=== PATIENT | female | born 1995 | race Caucasian/White ===

== ENCOUNTER 2019-03-25 11:51 | Inpatient (IN) | payer MEDICAID, SELFPAY ==
[2019-03-25 12:20] VITALS: BP 113/64; PULSE 51; RESP 18; TEMP 36.4; O2SAT 100
[2019-03-25 12:43] VITALS: BMI 16.8
[2019-03-25 12:50] VITALS: BMI 16.8
--- NOTE | 2019-03-25 13:01 | HP.PCM_ITS ---
Problem List (1) Opioid withdrawal Status: Acute (2) Tobacco dependence Status: Chronic History of Present Illness Date of Admission: 03/25/19 Chief Complaint: Opioid withdrawal. The patient is a 24 year old F requesting medical stabilization for opioid withdrawal. Patient uses IV heroin approximately 2 g daily, last used 8:30 PM last evening. Patient has been in detox twice before. Reports occasional marijuana use. Denies alcohol or other drug use. Reports she relapsed approximately 1 month ago and was prior drug free for 2 years. Currently complains of restlessness, abdominal cramping, chills, diaphoresis, nasal congestion. Current half pack per day smoker. Her other past medical history includes hepatitis C. 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 Paternal History Items: Diabetes Review of Systems Constitutional: Reports: Chills, Malaise HEENT: Denies: Head Aches, Sinus Congestion, Sinus Drainage Cardiovascular: Denies: Chest Pain, Palpitations Respiratory: Denies: Cough, Shortness of breath at rest, Sputum production Gastrointestinal: Reports: Nausea, - - Abdominal cramping. Denies: Abdominal Pain, Vomiting Genitourinary: Denies: Dysuria Musculoskeletal: Denies: Joint Pain, Joint Tenderness Skin: Denies: Rash, Wounds Neurological: Denies: Numbness, Tingling, Focal weakness Psychiatric: Denies: Anxiety, Depression, Homicidal Ideations, Suicidal Ideations Hematologic/ Lymphatic: Denies: Easy Bruising, Easy Bleeding VTE Information - Inpt Only VTE Present on Admission: No VTE Mechan Device Prophylaxis: None VTE Pharm Prophylaxis ordered?: No Reason prophylaxis not ordered:: Treatment Not Indicated Patient Problems: Active and Suspected Problems Opioid withdrawal (Acute) - Physical Exam General: Alert, Oriented x3, Cooperative HEENT: Atraumatic, PERRLA, EOMI, Normocephalic Neck: Supple, No JVD, Negative Carotid Bruits Lungs: Clear to auscultation, Normal air movement Cardiovascular: Regular rate, Regular Rhythm, Normal S1, Normal S2, No murmurs Abdomen: Bowel Sounds Present, Soft, Non Tender, Non-Distended Extremities: No clubbing, No cyanosis, No edema, Capillary Refill Less than 3 Seconds Skin: No rashes, No breakdown, - - Multiple puncture locations on bilateral arms and feet due to drug injection. No evidence of abscess or cellulitis. Musculoskeletal: No Tenderness to Palpation of Joints or Extremities Neurological: Cranial nerves II-XII grossly intact, Neuro grossly intact Psych/Mental Status: Anxious Vital Signs Temp Pulse Resp BP Pulse Ox 97.5 F L 51 L 18 113/64 100 03/25/19 12:20 03/25/19 12:20 03/25/19 12:20 03/25/19 12:20 03/25/19 12:20 Oxygen Delivery Method Room Air Weight: 104 lb 4.458 oz Body Mass Index (BMI) 16.8 Assessment/Plan All Active Problems Opioid withdrawal (Acute) 1. Acute opiate withdrawal-medical stabilization per protocol. Buprenorphine taper. PRN regimen for somatic complaints. 2. Tobacco dependence-encouraged smoking cessation. Nicotine replacement patch. 3. Moderate protein calorie nutrition-BMI 16. Reports 20 pound weight loss in the past month. Nutrition consult. 4. Marijuana use 5. Hepatitis C-outpatient follow-up. DVT prophylaxis-not indicated, low risk. This patient was seen by ANTOINE Reyna under the supervision of Dr. Rizzo.
[2019-03-25] MEDS: Buprenorphine HCl 2 MG TAB.SUBL SL ×2 (13:17→21:02)
[2019-03-25] MEDS: Methocarbamol 750 MG Tablet PO (13:20)
[2019-03-25] MEDS: Ibuprofen 600 MG Tablet PO (13:20)
[2019-03-25] MEDS: chlordiazePOXIDE 25 MG Capsule PO (13:21)
[2019-03-25 13:23] VITALS: RESP 16
[2019-03-25 13:40] LABS: Internal QC Validated? YES +Cl - CLEAR BKGD; Pregnancy, Serum, hCG Quali. NEGATIVE Negative
[2019-03-25 18:00] VITALS: BP 96/48; PULSE 47; RESP 16; TEMP 37.2
[2019-03-25] MEDS: cloNIDine HCl 0.1 MG Tablet PO (18:09)
[2019-03-25 21:06] VITALS: BP 98/48; PULSE 51; RESP 16; TEMP 36.9
[2019-03-25] MEDS: traZODone 50 MG Tablet PO (22:15)
[2019-03-26 01:40] VITALS: BP 96/46; PULSE 49; RESP 14; TEMP 37
[2019-03-26 05:56] VITALS: BP 99/58; PULSE 41; RESP 14; TEMP 37.1
[2019-03-26] MEDS: Buprenorphine HCl 2 MG TAB.SUBL SL ×3 (05:58→22:24)
[2019-03-26 09:54] VITALS: BP 106/59; PULSE 46; RESP 16; TEMP 37
[2019-03-26] MEDS: chlordiazePOXIDE 25 MG Capsule PO ×3 (10:07→23:37)
[2019-03-26] MEDS: Methocarbamol 750 MG Tablet PO ×3 (10:07→23:37)
[2019-03-26] MEDS: cloNIDine HCl 0.1 MG Tablet PO (10:07)
[2019-03-26] MEDS: Dicyclomine 10 MG Capsule 20 MG PO ×2 (10:07→17:33)
[2019-03-26] MEDS: Pramipexole Di-HCl 0.25 MG Tablet PO (10:07)
--- NOTE | 2019-03-26 12:14 | PCM.PROGNOTE ---
Patient Problems: Active and Suspected Problems Opioid withdrawal (Acute) Subjective: Patient seen and examined. No acute events overnight. Reports she slept well. Denies significant withdrawal symptoms currently. - Physical Exam General: Alert, Oriented x3, Cooperative HEENT: Atraumatic, PERRLA, EOMI, Normocephalic Neck: Supple, No JVD, Negative Carotid Bruits Lungs: Clear to auscultation, Normal air movement Cardiovascular: Regular rate, Regular Rhythm, Normal S1, Normal S2, No murmurs Abdomen: Bowel Sounds Present, Soft, Non Tender, Non-Distended Extremities: No clubbing, No cyanosis, No edema, Capillary Refill Less than 3 Seconds Skin: No rashes, No breakdown, - - Multiple puncture locations on bilateral arms and feet due to drug injection. No evidence of abscess or cellulitis. Musculoskeletal: No Tenderness to Palpation of Joints or Extremities Neurological: Cranial nerves II-XII grossly intact, Neuro grossly intact Psych/Mental Status: Normal Affect, Appropriate Vital Signs Temp Pulse Resp BP Pulse Ox 98.6 F 46 L 16 106/59 L 100 03/26/19 09:54 03/26/19 09:54 03/26/19 09:54 03/26/19 09:54 03/25/19 12:20 Oxygen Delivery Method Room Air Weight: 104 lb 4.458 oz Body Mass Index (BMI) 16.8 Laboratory Tests Past 24 Hrs 03/25/19 13:05 Serum , Qual NEGATIVE Medical Necessity - Tobacco Use Smoking Status: Current every day smoker Tobacco Use: Cigarettes Assessment/Plan All Active Problems Opioid withdrawal (Acute) 1. Acute opiate withdrawal-medical stabilization per protocol. Buprenorphine taper. PRN regimen for somatic complaints. 2. Tobacco dependence-encouraged smoking cessation. Nicotine replacement patch. 3. Severe protein calorie nutrition-BMI 16. Reports 20 pound weight loss in the past month. Nutrition consult. 4. Marijuana use 5. Hepatitis C-outpatient follow-up. DVT prophylaxis-not indicated, low risk. This patient was seen by ANTOINE Reyna under the supervision of Dr. Rizzo.
--- NOTE | 2019-03-26 12:49 | NEWVISION ---
Patient has aftercare appointment immediately post discharge at [facility] in [place] at 12pm on 03/28/2019. Please discharge by 10:30am on 03/28/2019.
[2019-03-26 15:00] VITALS: BP 93/43; PULSE 42; RESP 16; TEMP 36.8
[2019-03-26] MEDS: Ibuprofen 600 MG Tablet PO (17:34)
[2019-03-26 18:00] VITALS: BP 96/45; PULSE 42; RESP 16; TEMP 37.1
[2019-03-26] MEDS: hydrOXYzine PAM 25 MG Capsule 50 MG PO (22:24)
[2019-03-26 22:34] VITALS: BP 105/58; PULSE 48; RESP 16; TEMP 36.6
--- NOTE | 2019-03-26 22:35 | NURSING ---
This nurse heard yelling coming from patient's room. This nurse entered room and patient was on the phone yelling to whomever she was talking to. This nurse asked patient what was wrong and why she was yelling. Pt stated My boyfriend is using again so there is no point in me being here just leave me alone I'm leaving. This nurse went and retrieved scheduled and PRN medications for patient and went back to patient's room. Pt. was lying in bed no longer on the phone. This nurse asked patient if she would like her PRN medications and scheduled subtex. Patient stated Yes, I'm not leaving, I just want something to help me go to sleep. This nurse administered patient's scheduled and PRN medications and also brought patient fresh ice and snacks. Pt. is currently calm resting in bed watching TV.
[2019-03-27] MEDS: Buprenorphine HCl 2 MG TAB.SUBL SL (05:56)
[2019-03-27 06:00] VITALS: BP 88/39; PULSE 45; RESP 16; TEMP 36.6
[2019-03-27 09:24] VITALS: BP 83/33; PULSE 40; RESP 14; TEMP 36.5
[2019-03-27] MEDS: chlordiazePOXIDE 25 MG Capsule PO (10:01)
[2019-03-27 10:02] VITALS: BP 96/52; PULSE 41
--- NOTE | 2019-03-27 14:11 | PCM.DC.SUM ---
Discharge Date and Diagnosis Date of Admission: 03/25/19 Date of Discharge: 03/27/19 - Primary Discharge Diagnosis Left AMA Acute opiate withdrawal Tobacco abuse Severe protein calorie malnutrition Marijuana abuse Hepatitis C - Secondary Discharge Diagnosis Chronic Problems Tobacco dependence (Chronic) Hospital Course and Treatment Operations: None Procedures: None Summary of Care Provided: Hospital course: The patient is a 24 year old F with past medical history of IV heroin abuse, nicotine abuse, hepatitis C untreated, who was admitted for opiate detox. She had been using approximately 2 g of heroin daily, she had last used at about 8:30 PM the night prior to presentation. She had been through detox twice in the past. She denied drinking. She did also use marijuana. She had relapsed about a month prior after being drug free up for about 2 years. Her symptoms included restlessness cramping, chills, diaphoresis, nasal congestion. She also smoked about 1/2 pack of cigarettes per day. She was admitted to the medical stabilization program for opiate withdrawal. She had been doing well with the program with improvement in all of her symptoms today, however on day 3 she left AGAINST MEDICAL ADVICE. This patient was seen by Bernardo Hahn PA-C under the supervision of Doctor Matthias. [] - Physical Exam General: Alert, Oriented x3, Cooperative HEENT: Atraumatic, PERRLA, EOMI, Normocephalic Neck: Supple, No JVD, Negative Carotid Bruits Lungs: Clear to auscultation, Normal air movement Cardiovascular: Regular rate, No murmurs Abdomen: Bowel Sounds Present, Soft, Non Tender Extremities: No edema, Capillary Refill Less than 3 Seconds Skin: No rashes, No breakdown Musculoskeletal: No Tenderness to Palpation of Joints or Extremities Neurological: Cranial nerves II-XII grossly intact Psych/Mental Status: Normal Affect, Appropriate Vital Signs Temp Pulse Resp BP Pulse Ox 97.7 F L 41 L 14 96/52 L 100 03/27/19 09:24 03/27/19 10:02 03/27/19 09:03/27/19 10:02 03/25/19 12:20 Oxygen Delivery Method Room Air Weight: 104 lb 4.458 oz Body Mass Index (BMI) 16.8 Intake and Output for Last 24 Hours 03/25/19 03/26/19 03/27/19 23:59 23:59 23:59 Intake Total 800 / 800 200 / 200 Balance 800 / 800 200 / 200 Discharge Diet: - - Left AMA Discharge Activity: - - Left AMA Disposition: Against Medical Advice Minutes spent on discharge:: 35 Patient Condition:: Stable Medical Necessity - Tobacco Use Smoking Status: Current every day smoker Tobacco Use: Cigarettes Meaningful Use Info Meaningful Use Diagnoses (Choose all that apply): None applicable
== END 2019-03-27 10:50 | disposition left against medical advice (07) | DRG 770 ==
PROVIDERS: Admitting Provider Internal Medicine; Visit Provider Internal Medicine
DX: F11.23 Opioid dependence with withdrawal (principal); F17.210 Nicotine dependence, cigarettes, uncomplicated; Z68.1 Body mass index [BMI] 19.9 or less, adult; F12.10 Cannabis abuse, uncomplicated; B19.20 Unspecified viral hepatitis C without hepatic coma; E43 Unspecified severe protein-calorie malnutrition
CPT/HCPCS: 36415; 84703; 97802